=== PATIENT | male | born 1970 | race Caucasian/White ===

== ENCOUNTER 2016-09-21 02:04 | Emergency (ER) | payer OTHER ==
[~2016-09-21] VITALS: Ht 180.3 cm; Wt 99.1 kg
[~2016-09-21 02:04] MED LIST: NO HOME MEDS
[2016-09-21] MEDS ORDERED: ROBAXIN750 MG PO (05:48)
[2016-09-21] MEDS ORDERED: NAPROSYN500 MG PO (05:48)
[2016-09-21 06:48] VITALS: BP 112/70
== END 2016-09-21 06:49 | disposition home or self-care (01) ==
LOC: EME 02:04
DX: M79.652 Pain in left thigh (principal)
CPT/HCPCS: 73502; 93971; 99281; 99284